=== PATIENT | male | born 1980 | race Caucasian/White ===

== ENCOUNTER 2023-03-06 09:19 | Emergency (ER) | payer BC ==
[~2023-03-06] VITALS: Ht 182.9 cm; Wt 99.8 kg
[~2023-03-06 09:19] MED LIST: AMOX1TAB16 PO
--- NOTE | 2023-03-06 09:40 | NUR ---
Dr Rodriguez at the bedside for MSE.
[2023-03-06 09:46] LABS: HEMATOCRIT 42.3 % (36.7-47.1); MEAN CORPUSCULAR VOLUME 83.5 fL (73.0-96.2); PLATELET COUNT (AUTO) 240 K/uL (152-348)
[2023-03-06 09:48] LABS: *BILIRUBIN,URIN NEGATIVE (NEGATIVE); *BLOOD, URINE 1+ (NEGATIVE); *CLARITY,URINE CLEAR (CLEAR); *COLOR,URINE YELLOW (YELLOW); *KETONES,URINE NEGATIVE (NEGATIVE); *UROBILINOGEN,URINE 0.2 E.U./dl (NORMAL); LEUKOCYTE ESTERASE ,URINE NEGATIVE (NEGATIVE); NITRITE, URINE NEGATIVE (NEGATIVE); PH,URINE 7.5 (5.0-8.0); UGLUCOSE NEGATIVE (NEGATIVE)
[2023-03-06] MEDS ORDERED: KETOROLAC TROMETHAMINE 15 MG INJ IVP ONE (10:00)
[2023-03-06] MEDS ORDERED: IV NORMAL SALINE 1000 ML BAG IV ONE (10:00)
[2023-03-06] MEDS ORDERED: MAG HYDROX/AL HYDROX/SIMETH 30 ML LIQUID UDC PO ONE (10:00)
[2023-03-06] MEDS ORDERED: FAMOTIDINE. 20 MG/2 ML VIAL IV ONE ×2 (10:00→10:10)
[2023-03-06] MEDS ORDERED: LIDOCAINE VISCUS 2% 15 ML UDC MM ONE (10:00)
[2023-03-06 10:04] LABS: BILIRUBIN,DIRECT 0.2 mg/dL (0.0-0.2); BILIRUBIN,TOTAL 1.2 mg/dL (0.2-1.0); CREATININE 0.9 mg/dL (0.6-1.3); POTASSIUM 3.9 mmol/L (3.5-5.1); TOTAL PROTEIN, SERUM 8.6 g/dL (6.4-8.2)
[2023-03-06] MEDS ORDERED: KETOROLAC TROMETHAMINE 15 MG INJ ONE (10:10)
[2023-03-06] MEDS ORDERED: LIDOCAINE VISCUS 2% 15 ML UDC ONE (10:10)
[2023-03-06] MEDS ORDERED: MAG HYDROX/AL HYDROX/SIMETH 30 ML LIQUID UDC ONE (10:10)
--- NOTE | 2023-03-06 10:36 | NUR ---
Pt states feeling better and the upper abdominal cramps are less frequent.
[2023-03-06 10:44] LABS: BACTERIA,URINE NONE SEEN /HPF (NONE SEEN); WBC,URINE NONE SEEN /HPF (0-3)
[2023-03-06 10:45] LABS: SQUAMOUS EPITHELIAL CELL,UR FEW /HPF (NONE SEEN)
[2023-03-06] MEDS ORDERED: SWABABLE VALVE TRANSFER SET EA MC ONE (11:23)
[2023-03-06] MEDS ORDERED: IV NORMAL SALINE 250 ML IV ONE (11:23)
[2023-03-06] MEDS ORDERED: IOHEXOL 350 100 ML INFUS..BTL ONE (11:23)
--- NOTE | 2023-03-06 11:32 | NUR ---
Pt signed consent for CTA of chest/abd/pelvic, placed in the chart.
--- NOTE | 2023-03-06 11:34 | NUR ---
Pt out of Er for CT scan.
--- NOTE | 2023-03-06 11:50 | NUR ---
Spoke to Brianne, case consultant for pt transfer @ [phone].
--- NOTE | 2023-03-06 11:51 | NUR ---
Pt back from CT, resting in bed.
[2023-03-06 12:20] LABS: ETHANOL < 3 MG/DL (0-0)
[2023-03-06 12:25] LABS: *AMPHETAMINE, URINE NEGATIVE (NEGATIVE); *CANNABINOID, URINE POSITIVE (NEGATIVE); *COCCAINE, URINE NEGATIVE (NEGATIVE); *PHENCYCLIDINE SCREEN,URINE NEGATIVE (NEGATIVE)
[2023-03-06] MEDS ORDERED: ENOXAPARIN SODIUM 100 MG/ML DISP.SYRIN SQ ONE ×2 (12:30→12:34)
[2023-03-06] MEDS ORDERED: ASPIRIN 81 MG TAB.CHEW PO ONE (12:30)
[2023-03-06] MEDS ORDERED: ASPIRIN 81 MG TAB.CHEW ONE (12:34)
--- NOTE | 2023-03-06 13:45 | NUR ---
security operations manager, Brianne, notified us for pt is going to [facility].
--- NOTE | 2023-03-06 13:55 | NUR ---
Report given to Kimani at [facility]. Pt to go to room 590 bed 1. ETA for tx is 1500.
--- NOTE | 2023-03-06 14:32 | NUR ---
Patient is resting comfortably in bed with eyes closed, NAD noted.
--- NOTE | 2023-03-06 15:35 | NUR ---
Report given to transfering washing machine repairer. Pt left Er via gurney, all belongings sent w/ pt.
== END 2023-03-06 15:40 | disposition short-term general hospital (02) ==
LOC: ER 09:19
DX: I21.4 Non-ST elevation (NSTEMI) myocardial infarction (principal); R10.13 Epigastric pain; Z79.2 Long term (current) use of antibiotics; Z20.822 Contact with and (suspected) exposure to COVID-19
CPT/HCPCS: 36415; 71045; 71275; 83690; 84484; 85025; 93005; A4663; G0480; J1650; J1885; J3490; Q9967